=== PATIENT | female | born 1970 | race Two or more races ===

== ENCOUNTER 2021-11-12 15:33 | Outpatient (CLI) | payer OTHER | END 2021-11-12 15:47 | disposition home or self-care (01) | LOC: RAD 15:33 | PROVIDERS: ATTEND Orthopaedic Surgery | DX: S42.221A 2-part displaced fracture of surgical neck of right humerus, initial encounter for closed fracture (principal) ==

== ENCOUNTER 2021-11-19 12:40 | Outpatient (CLI) | payer OTHER | END 2021-11-19 12:43 | disposition home or self-care (01) | LOC: RAD 12:40 | PROVIDERS: ATTEND Orthopaedic Surgery | DX: S42.221D 2-part displaced fracture of surgical neck of right humerus, subsequent encounter for fracture with routine healing (principal) ==

== ENCOUNTER 2021-12-17 15:52 | Outpatient (CLI) | payer OTHER ==
[2021-12-17] MEDS ORDERED: ATIVAN1 M1 PO (17:29)
== END 2021-12-17 16:01 | disposition home or self-care (01) ==
LOC: RAD 15:52
PROVIDERS: ATTEND Orthopaedic Surgery
DX: S42.221D 2-part displaced fracture of surgical neck of right humerus, subsequent encounter for fracture with routine healing (principal)

== ENCOUNTER 2021-12-17 17:02 | Emergency (ER) | payer OTHER ==
[~2021-12-17] VITALS: Ht 152.4 cm; Wt 40.8 kg
[2021-12-17] MEDS ORDERED: ATIVAN1 M1 PO (17:29)
== END 2022-01-06 17:30 | disposition left against medical advice (07) ==
LOC: ER 17:02
DX: Z53.21 Procedure and treatment not carried out due to patient leaving prior to being seen by health care provider (principal)